=== PATIENT | male | born 1995 | race Caucasian/White ===

== ENCOUNTER 2022-10-16 12:56 | Emergency (ER) | payer BC, SELFPAY ==
--- NOTE | ~2022-10-16 | XR_ITS ---
EXAMINATION: XR finger 5th RT min 2V DATE: 10/16/2022 13:58 INDICATION: Right hand fifth digit laceration. TECHNIQUE: 3 views of right hand fifth digit were obtained. COMPARISON: None. FINDINGS: Bone alignment is normal. No fracture. Joint spaces are well maintained. IMPRESSION: 1. No fracture or radiopaque foreign body. Reviewed, dictated and finalized at location A. OR
[2022-10-16 13:27] VITALS: BP 142/97; PULSE 80; RESP 16; TEMP 36.6; O2SAT 98
--- NOTE | 2022-10-16 14:01 | ED.WOUNDLAC ---
HPI - Wound/Laceration General Chief Complaint: Wound/Laceration Stated Complaint: lac Time Seen by Provider: 10/16/22 13:36 Source: patient Mode of arrival: ambulatory Limitations: no limitations History of Present Illness HPI narrative: Patient is a 27-year-old male who presents the ED with report of a laceration to his right fifth digit. 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 Sustained laceration to R 5th distal digit, palmar surface. He also sustained a small abrasion to webspace between 1st/2nd digits. Bleeding controlled by the time of my evaluation. Tetanus status up-to-date as of a few years ago. Patient denies any other injuries. Denies numbness, tingling. Related Data Allergies Allergy/AdvReac Type Severity Reaction Status Date / Time No Known Allergies Allergy Verified 10/16/22 13:27 Review of Systems Review of Systems: CONSTITUTIONAL: Denies fever, chills, sweats. SKIN: See HPI. NEUROLOGIC: Denies tingling, numbness, or weakness. All systems reviewed & are unremarkable except as noted in HPI and below PMFSH Past Medical History Medical History (Updated 10/16/22 @ 14:58 by Germania Dykes PA-C) No pertinent past medical history Surgical History Surgical History (Updated 10/16/22 @ 14:03 by Germania Dykes PA-C) No pertinent past surgical history Family History Family History (Reviewed 04/10/21 @ 14:42 by Kitty Verdugo, [facility]) Mother Family history of hearing loss Other Diabetes mellitus Family history of alcoholism Family history of cardiovascular disease Family history of malignant neoplasm Social History Social History Alcohol intake: current Exam Narrative: GENERAL: Well appearing, well-nourished, non-toxic, in no acute distress. HEAD: Normocephalic, atraumatic. NECK: Supple. No adenopathy, no masses. RESPIRATORY: Airway patent, respirations nonlabored. Clear to auscultation bilaterally, no rales, rhonchi, wheezing. CARDIOVASCULAR: Regular rate and rhythm without murmurs, rubs, or gallops. Radial pulses 2+ and equal bilaterally. MUSCULOSKELETAL: Moves all extremities. Strength/ROM intact without gross deformities. Approx 2 cm V-shaped flap laceration to R 5th digit palmar surface over area of distal phalange. Minimal active bleeding with manipulation. Small superficial abrasion to palmar surface of webspace between 1st/2nd digits, no active bleeding. SKIN: Warm, dry, normal color. No rashes. NEURO: A&O X3. Speech clear. Cranial nerves II-XII grossly intact. Steady gait. No ataxic movements. PSYCHIATRIC: Appropriate mood and affect. Normal interaction. Course Vital Signs Vital signs: Vital Signs Temperature 97.9 F 10/16/22 13:27 Pulse Rate 80 10/16/22 13:27 Respiratory Rate 16 10/16/22 13:27 Blood Pressure 142/97 H 10/16/22 13:27 Pulse Oximetry 98 10/16/22 13:27 Temperature 97.9 F 10/16/22 13:27 Pulse Rate 80 10/16/22 13:27 Respiratory Rate 16 10/16/22 13:27 Blood Pressure 142/97 H 10/16/22 13:27 Pulse Oximetry 98 10/16/22 13:27 Procedures Laceration Laceration 1: Date: 10/16/22 Time: 14:30 Site: hand (5th digit) Side (If applicable): right Size (cm): 2 Description: linear and flap (V-shaped) Depth: simple, single layer Local Anesthetic: other anesthetic (digital block) Pre-repair: wound explored and irrigated ====== Skin Level ====== Skin layer closed with: nylon Size (cm): 5-0 Number of sutures: 4 Technique: simple, interrupted ====== Subcutaneous Layer ====== ====== Muscle Layer ====== ====== Tendon Layer ====== Nerve Block Nerve Block 1: Nerve block date: 10/16/22 Nerve block time: 14:20 Time out performed: Yes Local Anesthetic: lidocaine 1% Amount of anesthes
== END 2022-10-16 16:04 | disposition home or self-care (01) ==
PROVIDERS: Emergency Provider Physician Assistant; PCP Family Medicine
DX: S61.216A Laceration without foreign body of right little finger without damage to nail, initial encounter (principal); W25.XXXA Contact with sharp glass, initial encounter
CPT/HCPCS: 12001; 73140; 99283

== ENCOUNTER 2022-12-28 10:35 | Emergency (ER) | payer BC, SELFPAY ==
--- NOTE | 2022-12-28 10:47 | ED.WOUNDLAC ---
HPI - Wound/Laceration General Chief Complaint: Skin/Abscess/Foreign Body Stated Complaint: puncture wound rt foot Time Seen by Provider: 12/28/22 10:47 Source: patient Mode of arrival: ambulatory Limitations: no limitations History of Present Illness HPI narrative: Mario is a 27-year-old male patient presenting to the clinic today with complaints of a puncture wound to his right foot. He reports he stepped on a nail last night. States that he clean the area with alcohol and applied triple antibiotic ointment. Is having some pain with walking but denies any drainage. He does not feels though there is any other foreign body in his foot at this time. He is here today as he is concerned that his tetanus shot is not up-to-date. Related Data Allergies Allergy/AdvReac Type Severity Reaction Status Date / Time No Known Allergies Allergy Verified 12/28/22 10:53 Review of Systems Review of Systems: Pertinent positives per HPI. Patient denies any fever, chills, rash, headache, visual changes, dizziness, cough, runny nose, sore throat, shortness of breath, chest pain, palpitations, nausea, vomiting, diarrhea, constipation, abdominal pain, or any urinary issues. [facility] Past Medical History Medical History No pertinent past medical history Surgical History Surgical History No pertinent past surgical history Family History Family History Mother Family history of hearing loss Other Diabetes mellitus Family history of alcoholism Family history of cardiovascular disease Family history of malignant neoplasm Social History Social History Alcohol intake: current Comments At the time of my signature, I reviewed and agree with the nursing past medical, surgical, social, and family history. There is no relevant family history pertinent to the patient complaint. Exam Narrative: General: Well-developed, well nourished, in no apparent distress Head: Normocephalic, atraumatic. Cardio: Regular rate and rhythm, s1 and s2 normal, no murmur appreciated. Resp: Clear to auscultation bilaterally, no rhonchi, rales, wheezing or rubs. Integumentary: [place], warm, and dry, puncture wound from a small nail to the right distal mid foot just proximal of the 2nd toe. Localized mild redness, tenderness, and swelling noted around puncture wound. No drainage Course Course Emergency Course: Portions of this record may have been created with voice recognition software. Level of Care: Express Care Visit Vital Signs Vital signs: Vital Signs Temperature 36.8 C 12/28/22 10:54 Pulse Rate 97 12/28/22 10:54 Respiratory Rate 16 12/28/22 10:54 Blood Pressure 133/81 12/28/22 10:54 Pulse Oximetry 98 12/28/22 10:54 Oxygen Delivery Room Air 12/28/22 10:54 Temperature 36.8 C 12/28/22 10:54 Pulse Rate 97 12/28/22 10:54 Respiratory Rate 16 12/28/22 10:54 Blood Pressure 133/81 12/28/22 10:54 Pulse Oximetry 98 12/28/22 10:54 Oxygen Delivery Room Air 12/28/22 10:54 Vital signs reviewed Discharge Plan Discharge Clinical Impression: Puncture wound of foot Qualifiers: Encounter type: initial encounter Laterality: right Qualified Code(s): S91.331A - Puncture wound without foreign body, right foot, initial encounter Patient Disposition: Home, Self-Care Condition: Stable Instructions: Antibiotic Form, Puncture Wound in the Foot (ED) Additional Instructions: Tdap was updated in the clinic today. Leave bandage on for 24 hours then may remove and apply band aide covering as needed. May apply triple antibiotic ointment to wound twice daily x3 days Keep wound clean and dry Watch for signs and symptoms of infection- redness, streaking, swelling, purulent
[2022-12-28 10:54] VITALS: BP 133/81; PULSE 97; RESP 16; TEMP 36.8; O2SAT 98
[2022-12-28] MEDS: TETANUS,DIPHTHERIA,AC PERTUSSIS ADULT (0.5 ML) BOOSTRIX IM (11:17)
== END 2022-12-28 11:32 | disposition home or self-care (01) ==
PROVIDERS: Emergency Provider Nurse Practitioner Family; PCP Family Medicine
DX: S91.331A Puncture wound without foreign body, right foot, initial encounter (principal); W45.0XXA Nail entering through skin, initial encounter; Z23 Encounter for immunization
CPT/HCPCS: 90471; 90715; 99212; G0463